=== PATIENT | female | born 1985 | race Caucasian/White ===

== ENCOUNTER 2024-01-15 12:11 | Emergency (ER) | payer SELFPAY ==
[2024-01-15 12:39] VITALS: BP 112/71
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
[2024-01-15] MEDS: ZOFRAN ODT (ORALLY DISINTEGRATING) 4 MG PO (13:32)
[2024-01-15] MEDS: TYLENOL 650 MG PO (13:32)
== END 2024-01-15 13:50 | disposition home or self-care (01) ==
LOC: EMR 12:11
PROVIDERS: EMERGENCY PHYSICIAN Emergency Medicine; FAMILY PHYSICIAN Family Medicine
DX: S06.0XAA Concussion with loss of consciousness status unknown, initial encounter (principal); Y04.0XXA Assault by unarmed brawl or fight, initial encounter; Y99.0 Civilian activity done for income or pay
CPT/HCPCS: 99282

== ENCOUNTER → 2024-12-03 09:01 | Outpatient (REF) | payer OTHER, SELFPAY | LOC: WDC 09:01 | PROVIDERS: ATTENDING PHYSICIAN Physician Assistant Surgical; FAMILY PHYSICIAN Family Medicine | DX: N64.4 Mastodynia (principal) | CPT/HCPCS: 76642; 77062; 77066 ==

== ENCOUNTER 2024-12-15 12:10 | Emergency (ER) | payer OTHER, SELFPAY ==
[2024-12-15 12:11] VITALS: BP 121/83
[2024-12-15 12:24] VITALS: BP 125/57
[2024-12-15 12:44] VITALS: BMI 20.1
[2024-12-15 13:00] VITALS: BP 124/67
[2024-12-15 13:11] LABS: % Basophils 0.5 % (0-2); % Eosinophils 0.4 % (0-6); % Immature Granulocytes 0.3 % (0-0.5); % Lymphocytes 17.4 % (20.5-51.1); % Monocytes 6.3 % (1.7-9.3); % Neutrophils 75.1 % (42.2-75.2); Absolute Basophils 0.1 10^3/uL (0-0.2); Absolute Lymphocytes 1.9 10^3/uL (1.2-3.4); Absolute Monocytes 0.7 10^3/uL (0.1-0.6); Absolute Neutrophils 8.2 10^3/uL (1.4-6.5); Hematocrit 37.3 % (37.0-47.0); Hemoglobin 13.1 g/dL (12.0-16.0); Mean Corp Hgb Conc. 35.1 g/dL (33.0-37.0); Mean Corpuscular Volume 91.2 fL (81.0-99.0); Mean Platelet Volume 10.1 fL (7.4-10.4); Nucleated Red Blood Cells % 0 %; Platelet Count 391 10^3/uL (130-400); Red Blood Cell Count 4.09 10^6/uL (4.20-5.40); Red Cell Dist. Width 12.7 % (11.5-14.5); White Blood Cell Count 10.9 10^3/uL (4.8-10.8)
--- NOTE | 2024-12-15 13:27 | ED.GENMED ---
History of Present Illness
General
Chief Complaint: Chest Pain
Source: patient
Exam Limitations: none
Time Seen by Provider: 12/15/24 13:07
History of Present Illness
History of Present Illness:
39-year-old otherwise healthy female presents complaining of intermittent right sided chest discomfort over the past several weeks. No known injury. The pain is not pleuritic. Not changed with eating. No urinary symptoms. She is seen by her
doctor and the urgent care. X-rays were taken of her neck and chest which were negative. She was thought to have musculoskeletal discomfort. No recent travel or surgery. No leg swelling or calf pain however she does take control pills. No
flank pain. No rash. No other complaints at this time
Past History
Past History
ED Past Medical History: None
ED Past Surgical History:
Social History
Tobacco: Non-smoker
Alcohol: None
Drug: None
Phy Exam
Physical Exam
Physical Exam:
General: Well-appearing female no acute respiratory distress
HEENT: Normocephalic atraumatic
Heart: Regular rate and rhythm no murmurs
Lungs: Clear no wheeze
No costovertebral angle tenderness musculoskeletal exam:
Cervical spine nontender right shoulder with good active range of motion and good strength.
Abdomen is soft nontender nondistended no guarding or rebound
Scores
Heart Score for Chest Pain Patients
STEMI patient?: No
History: Slightly or Non-Suspicious
ECG: Normal
Age: </= 45 years
Risk Factors: No Risk Factors
Troponin: </= Normal Limit
Heart Score for Chest Pain Patients: 0
Heart Score Risk: 2.5% MACE over next 6 weeks
Course
Orders/Labs/Results
Orders:
Orders
12/15/24 12:14
Electrocardiogram (*1) Urgent
Reason for Study: Chest Pain
EKG- Treatment ONCE
Test Result ONCE
12/15/24 12:48
Complete Blood Count/With Diff Urgent
Comprehensive Metabolic Panel Urgent
HCG, Serum Qualitative Screen Urgent
Troponin I Urgent
12/15/24 13:28
Ketorolac [Toradol] 15 mg IV NOW STA
12/15/24 14:46
D-Dimer Urgent
Urinalysis Reflex To Culture Urgent
Date Specimen was Collected: 12/15/24
Time Specimen was Collected: 14:45
Urine Microscopic Reflex Cult Urgent
Urine Culture Urgent
CHIARA Source: U
Specimen Description:
Date Specimen was Collected: 12/15/24
Time Specimen was Collected: 14:45
Abnormal Lab Results
12/15/24 12/15/24
12:48 14:46
WBC 10.9 H 10^3/uL
(4.8-10.8)
RBC 4.09 L 10^6/uL
(4.20-5.40)
MCH 32.0 H pg
(27.0-31.0)
Absolute Neuts (auto) 8.2 H 10^3/uL
(1.4-6.5)
Absolute Monos (auto) 0.7 H 10^3/uL
(0.1-0.6)
Lymphocytes % 17.4 L %
(20.5-51.1)
Urine Ketones 3+ A
(Negative)
Ur Occult Blood Reflex 2+ A
(Negative)
Leukocyte Esterase Rfl 3+ A
(Negative)
Urine RBC 3-6 A /HPF
(0-2)
Urine Bacteria (Reflex) Many A
(Negative)
12/15/24 12:48
12/15/24 12:48
Vital Signs
Initial and Last Documented VS:
Initial Vital Signs
Temp Pulse Resp BP Pulse Ox
98.3 F 85 18 121/83 99
12/15/24 12:11 12/15/24 12:11 12/15/24 12:11 12/15/24 12:11 12/15/24 12:11
Last Documented Vital Signs
Temp Pulse Resp BP Pulse Ox
98.3 F 63 19 120/55 98
12/15/24 12:11 12/15/24 15:45 12/15/24 15:45 12/15/24 15:00 12/15/24 15:45
MDM/Problems Addressed
Differential Diagnosis Includes:
Chest discomfort that radiates to the back and shoulder. Not pleuritic nonspecific in nature. Consider ACS versus PE versus dissection however vital signs very stable and she is healthy otherwise. I reviewed recent x-ray of her chest and cervical
spine on her phone through [facility] which were both negative.
EKG shows sinus rhythm with a rate of 80 no ischemic changes. D-dimer given the fact that she takes control pills. Troponin pending.
*Critical Care Note
Total Time (30-74mins, 75-104mins- exclusive of procedures): Not Applicable
Update Note
Update Note:
Trop/d-dimer negative. Patient's vital signs remained stable. She did receive some relief with Toradol. Suspect chest wall discomfort. No indication for admission. Recommend follow-up with use of NSAIDs at home
ED Attending Note
-
Portions of this chart may have been created with voice recognition software.� Occasional wrong word or��sound alike� substitutions may have occurred due to the inherent limitations of voice recognition software.
Discharge Plan
Departure
Patient Disposition: Home (Routine Discharge)
Date of Disposition: 12/15/24
Time of Disposition: 16:03
Patient with high blood pressure during this ER visit?: No
Discharge Problem:
Chest wall pain
Instructions: Chest Pain PCP Follow Up
Prescriptions:
No Action
Vitamin Tablet
1 tab PO DAILY
acetaminophen 325 MG tablet
650 mg PO Q4HPRN PRN (Reason: mild pain) 0RF
sennosides-docusate sodium 1 TABLET tablet
1 tab PO DAILYPRN PRN (Reason: constipation) Qty: 30 0RF
calcium carbonate [Antacid (calcium carbonate)] 1 TABLET tablet,chewable
1 tab PO Q4HPRN PRN (Reason: HEARTBURN) 0RF
ibuprofen 600 MG tablet
600 mg PO Q4HPRN PRN (Reason: cramps) Qty: 30 0RF
oxycodone-acetaminophen 5 MG/325 MG tablet
1 tab PO Q4HPRN PRN (Reason: moderate pain) Qty: 15 0RF
prochlorperazine maleate 10 MG tablet
10 mg PO Q8HPRN PRN (Reason: headache) Qty: 12 0RF
ondansetron 4 mg tablet,disintegrating
4 mg PO Q8H PRN (Reason: nausea and vomiting) Qty: 10 0RF
Referrals:
Cedrick May DO [Family Provider] -
Activity Restrictions/Additional Instructions:
Continue with ibuprofen at home. Consider antacids. Return if worse otherwise follow-up with your doctor
Interventions
Interventions:
*Risk Screen - Suicide Last Done: 12/15/24 12:11
*General Assessment Last Done: 12/15/24 12:11
*Neglect/Abuse Screening Last Done: 12/15/24 12:11
ED- Fall Risk Assessment Last Done: 12/15/24 12:45
*ED COVID-19 Vaccine History Last Done: 12/15/24 12:46
ED- Cardiac Assessment Last Done: 12/15/24 12:45
Discharge Date and Time
Print Language: NIGERIAN
[2024-12-15 13:31] LABS: HCG, Serum Qualitative Screen Negative
[2024-12-15 13:37] LABS: ALT (SGPT) 12 U/L (0-35); AST (SGOT) 21 U/L (14-36); Albumin 4.5 g/dl (3.5-5.0); Alkaline Phosphatase 52 U/L (38-126); Blood Urea Nitrogen 11 mg/dl (7-17); Calcium 10.2 mg/dl (8.4-10.2); Carbon Dioxide 24 mmol/L (22-30); Chloride 102 mmol/L (98-107); Estimated Creatinine Clearance 98 ml/min; Glucose 92 mg/dl (70-99); Sodium 137 mmol/L (135-145); Total Bilirubin 0.8 mg/dl (0.2-1.3); Total Protein 7.3 g/dl (6.3-8.2); eGFR > 60.00
[2024-12-15 13:45] LABS: Troponin I < 0.012 ng/ml
[2024-12-15] MEDS: TORADOL 15 MG IV (14:51)
[2024-12-15 15:00] VITALS: BP 120/55
[2024-12-15 15:00] LABS: Urine Albumin Negative (Neg - Trace); Urine Bilirubin Negative (Negative); Urine Character Slightly Cloudy (Clear); Urine Color Yellow; Urine Glucose Negative (Negative); Urine Ketone 3+ (Negative); Urine Leukocyte 3+ (Negative); Urine Nitrite Negative (Negative); Urine Occult Blood 2+ (Negative); Urine Urobilinogen Negative (Neg - 1+)
[2024-12-15 15:29] LABS: Urine Bacteria Many (Negative); Urine Squamous Cell >30 /LPF (Few)
[2024-12-15 15:56] LABS: D-Dimer < 0.27 ug/mlFEU (0.00-0.50)
== END 2024-12-15 16:32 | disposition home or self-care (01) ==
LOC: EMR 12:10
PROVIDERS: Emergency Medicine; Physician Assistant; EMERGENCY PHYSICIAN Emergency Medicine; FAMILY PHYSICIAN Family Medicine
DX: R07.89 Other chest pain (principal)
CPT/HCPCS: 99283; 96374; 80053; 81003; 81015; 84484; 84703; 85025; 85379; 87086; 93005

== ENCOUNTER 2024-12-17 07:36 | Emergency (ER) | payer OTHER, SELFPAY ==
[2024-12-17 07:41] VITALS: BP 127/90
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
[2024-12-17 09:06] LABS: % Basophils 0.4 % (0-2); % Eosinophils 0.4 % (0-6); % Immature Granulocytes 0.3 % (0-0.5); % Lymphocytes 21.5 % (20.5-51.1); % Neutrophils 69.4 % (42.2-75.2); Absolute Lymphocytes 1.5 10^3/uL (1.2-3.4); Absolute Monocytes 0.5 10^3/uL (0.1-0.6); Absolute Neutrophils 4.7 10^3/uL (1.4-6.5); Hematocrit 38.7 % (37.0-47.0); Hemoglobin 13.4 g/dL (12.0-16.0); Mean Corp Hgb Conc. 34.6 g/dL (33.0-37.0); Mean Corpuscular Hgb 32.4 pg (27.0-31.0); Mean Corpuscular Volume 93.7 fL (81.0-99.0); Nucleated Red Blood Cells % 0 %; Platelet Count 419 10^3/uL (130-400); Red Blood Cell Count 4.13 10^6/uL (4.20-5.40); Red Cell Dist. Width 12.6 % (11.5-14.5); White Blood Cell Count 6.8 10^3/uL (4.8-10.8)
[2024-12-17 09:22] LABS: ALT (SGPT) 13 U/L (0-35); AST (SGOT) 24 U/L (14-36); Albumin 4.4 g/dl (3.5-5.0); Alkaline Phosphatase 50 U/L (38-126); Blood Urea Nitrogen 10 mg/dl (7-17); Calcium 9.7 mg/dl (8.4-10.2); Carbon Dioxide 27 mmol/L (22-30); Chloride 105 mmol/L (98-107); Glucose 96 mg/dl (70-99); Lipase 127 U/L (23-300); Sodium 139 mmol/L (135-145); Total Bilirubin 0.9 mg/dl (0.2-1.3); eGFR > 60.00
[2024-12-17 09:33] LABS: Troponin I < 0.012 ng/ml
[2024-12-17 10:00] VITALS: BP 105/62
[2024-12-17] MEDS: PROTONIX 40 MG PO (10:31)
[2024-12-17 11:00] VITALS: BP 103/60
[2024-12-17 12:44] VITALS: BP 116/72
== END 2024-12-17 13:01 | disposition home or self-care (01) ==
LOC: EMR 07:36
PROVIDERS: Student in an Organized Health Care Education/Training Program; EMERGENCY PHYSICIAN Emergency Medicine; FAMILY PHYSICIAN Family Medicine
DX: F41.0 Panic disorder [episodic paroxysmal anxiety] (principal); K21.9 Gastro-esophageal reflux disease without esophagitis; M41.9 Scoliosis, unspecified; E03.9 Hypothyroidism, unspecified
CPT/HCPCS: 99285; 71046; 80053; 83690; 84484; 85025; 93005

== ENCOUNTER 2025-06-25 12:51 | Emergency (ER) | payer OTHER, SELFPAY ==
[2025-06-25 12:55] VITALS: BP 107/81
[2025-06-25 16:30] VITALS: BMI 22.4
[2025-06-25] MEDS: ZOFRAN ODT (ORALLY DISINTEGRATING) 4 MG PO (16:37)
--- NOTE | 2025-06-25 16:37 | ED.GENMED ---
History of Present Illness
General
Chief Complaint: Head Injury
Time Seen by Provider: 06/25/25 16:11
History of Present Illness
History of Present Illness:
39-year-old female without significant past medical history presenting to the emergency department after a head injury. Patient reports 1 week ago she tripped and struck the left side of her head on a door frame. She has since had some nausea,
headache, light sensitivity. She reports that she went to urgent care prior to arrival, who noted concern for intracranial injury and was sent to the ER for further assessment. Denies visual changes. Denies any additional injuries. She is not on
any blood thinners. Denies chest pain or difficulty breathing or additional acute medical complaints
Past History
Past History
ED Past Medical History: None
ED Past Surgical History:
Social History
Tobacco: Non-smoker
Alcohol: None
Drug: None
Phy Exam
Physical Exam
Physical Exam:
General: Well-appearing, no clinical signs of dehydration, nontoxic and in no acute distress
HEENT: protecting airway, pupils equal and reactive and extraocular movements intact
head: Atraumatic
Neck: appears supple
CV: Normal heart rate
Resp: No accessory muscle use, no increased work of breathing
Abd: No distention
Extremities: No deformities, no swelling
Neuro: alert, no focal neurologic deficit
: deferred
Rectal: deferred
Psych: Normal affect
Skin: Intact
Course
Orders/Labs/Results
Orders:
Orders
06/25/25 12:58
CT Head W/o Iv Contrast Urgent
Comment:
Reason For Exam: head injury
06/25/25 16:37
Ondansetron Orally Disint [Zofran Odt (Orally Disintegrating)] 4 mg PO NOW STA
Vital Signs
Initial and Last Documented VS:
Initial Vital Signs
Temp Pulse Resp BP Pulse Ox
98.2 F 87 16 107/81 98
06/25/25 12:55 06/25/25 12:55 06/25/25 12:55 06/25/25 12:55 06/25/25 12:55
Last Documented Vital Signs
Temp Pulse Resp BP Pulse Ox
98.2 F 87 16 107/81 98
06/25/25 12:55 06/25/25 12:55 06/25/25 12:55 06/25/25 12:55 06/25/25 12:55
MDM/Problems Addressed
MDM/Problems Addressed:
39-year-old female presenting with headache and nausea after head injury a week ago. Vital signs normal.
On exam patient is resting comfortably, no acute distress. No signs of head trauma, no focal neurologic deficits. Symptoms appear most consistent with mild postconcussive syndrome. CT brain obtained prior to my assessment given duration of
symptoms, negative for acute intracranial abnormality. Patient administered Toradol and Zofran for her symptoms. Otherwise feel stable for discharge with outpatient supportive therapy. Return precautions discussed and patient verbalized
understanding
*Pulse Oximetry
SaO2: 98
Oxygen Mode of Delivery: Room air
Patient hypoxic: no
*Critical Care Note
Total Time (30-74mins, 75-104mins- exclusive of procedures): Not Applicable
ED Attending Note
-
Portions of this chart may have been created with voice recognition software.� Occasional wrong word or��sound alike� substitutions may have occurred due to the inherent limitations of voice recognition software.
Discharge Plan
Departure
Patient Disposition: Home (Routine Discharge)
Date of Disposition: 06/25/25
Time of Disposition: 16:41
Patient with high blood pressure during this ER visit?: No
Condition: Good
Discharge Problem:
Post concussive syndrome
Instructions: Concussion, Adult (DC), Minor Head Injury (DC)
Prescriptions:
New
ondansetron 4 mg Tablet,Disintegrating
4 mg PO TIDPRN PRN (Reason: nausea/vomiting) Qty: 6 0RF
No Action
Vitamin Tablet
1 tab PO DAILY
acetaminophen 325 MG tablet
650 mg PO Q4HPRN PRN (Reason: mild pain) 0RF
sennosides-docusate sodium 1 TABLET tablet
1 tab PO DAILYPRN PRN (Reason: constipation) Qty: 30 0RF
calcium carbonate [Antacid (calcium carbonate)] 1 TABLET tablet,chewable
1 tab PO Q4HPRN PRN (Reason: HEARTBURN) 0RF
ibuprofen 600 MG tablet
600 mg PO Q4HPRN PRN (Reason: cramps) Qty: 30 0RF
oxycodone-acetaminophen 5 MG/325 MG tablet
1 tab PO Q4HPRN PRN (Reason: moderate pain) Qty: 15 0RF
prochlorperazine maleate 10 MG tablet
10 mg PO Q8HPRN PRN (Reason: headache) Qty: 12 0RF
ondansetron 4 mg tablet,disintegrating
4 mg PO Q8H PRN (Reason: nausea and vomiting) Qty: 10 0RF
cyclobenzaprine 10 mg tablet
10 mg PO TIDPRN PRN (Reason: muscle spasm) Qty: 30 0RF
pantoprazole [Protonix] 40 mg tablet,delayed release (DR/EC)
40 mg PO DAILY Qty: 30 0RF
Rx Instructions:
Please take 30 minutes prior to eating or drinking anything in the morning.
Activity Restrictions/Additional Instructions:
You were seen in the emergency department for head injury
You were found to have negative CT imaging of your brain. We suspect a mild concussion. Please take Tylenol or Motrin as needed for headache.
Please follow-up closely with your primary care physician.
Return to the emergency department for any worsening of your symptoms, or any development of chest pain, difficulty breathing, abdominal pain with persistent vomiting and inability to tolerate food or liquid by mouth (concern for dehydration),
weakness, headache or confusion, fever greater than 100.4, or any additional symptoms that are concerning to you.
Thank you for choosing [facility].
Interventions
Interventions:
*Risk Screen - Suicide Last Done: 06/25/25 12:55
*General Assessment Last Done: 06/25/25 16:30
*Neglect/Abuse Screening Last Done: 06/25/25 12:55
*ED- Fall Risk Assessment Last Done: 06/25/25 16:30
*ED COVID-19 Vaccine History Last Done: 06/25/25 16:30
ED- Neurological Assessment Last Done: 06/25/25 16:32
ED-Skin Assessment Last Done: 06/25/25 16:32
Discharge Date and Time
Print Language: [id number]
[2025-06-25] MEDS: TORADOL 15 MG IM (16:38)
== END 2025-06-25 16:55 | disposition home or self-care (01) ==
LOC: EMR 12:51
PROVIDERS: EMERGENCY PHYSICIAN Student in an Organized Health Care Education/Training Program; FAMILY PHYSICIAN Family Medicine
DX: S09.90XA Unspecified injury of head, initial encounter (principal); F07.81 Postconcussional syndrome; W01.198A Fall on same level from slipping, tripping and stumbling with subsequent striking against other object, initial encounter
CPT/HCPCS: 99284; 96372; 70450